=== PATIENT | male | born 1955 | race Caucasian/White ===

== ENCOUNTER 2018-12-16 03:41 | Emergency (ER) | payer MEDICARE ==
[~2018-12-16] VITALS: Ht 167.6 cm; Wt 67.1 kg
--- OUTSIDE RECORDS SUMMARY | 2018-12-16 03:44 | XMS REPORT ---
[facility] Address Unknown Phone Unavailable Care Team Providers Care Nailer Hand Name Role Phone Unavailable Unavailable Payers Payer Name Policy Type Policy Number Effective Date Expiration Date Problems This patient has no known problems. Allergies, Adverse Reactions, Alerts Allergy Name Allergy Type Status Severity Reaction(s) Onset Date Inactive Date Treating Clinician Comments No Known Allergies DA Active U 2018-08-21 00:00:00 No Known Allergies DA Active U 2018-08-19 00:00:00 No Known Allergies DA Active U 2017-06-13 00:00:00 Medications This patient has no known medications. Results Test Description Test Time Test Comments Text Results Atomic Results Result Comments GLUBED 2018-08-24 08:17:00 GLUBED (test code=GLUBED) 235 mg/dL 74-106 Performed by certified news camera operator at [facility] [id number] 07:51:00* Test Item Value Reference Range Comments GLUBED (test code=GLUBED) 289 mg/dL 74-106 Performed by certified news camera operator at [facility] [id number] 15:31:00* Test Item Value Reference Range Comments GLUBED (test code=GLUBED) 223 mg/dL 74-106 Performed by certified news camera operator at [facility] [id number] 11:34:00* Test Item Value Reference Range Comments GLUBED (test code=GLUBED) 223 mg/dL 74-106 Performed by certified news camera operator at [facility] COMPREHENSIVE METABOLIC [id number] 08:51:00* Test Item Value Reference Range Comments SODIUM (test code=NA) 138 mmol/L 136-145 POTASSIUM (test code=K) 4.4 mmol/L 3.5-5.1 CHLORIDE (test code=CL) 105.0 mmol/L 98-107 CARBON DIOXIDE (test code=CO2) 21.0 mmol/L 21-32 ANION GAP (test code=GAP) 16.4 10-20 GLUCOSE (test code=GLU) 493 mg/dL 74-106 BLOOD UREA NITROGEN (test code=BUN) 9 mg/dL 7-18 GLOMERULAR FILTRATION RATE (test code=GFR) > 60 mL/min >=60 Estimated GFR by using Modified MDRD formula.Chronic kidney disease is defined as either kidney damageor GFR <60 mL/min/1.73 m2 for >3 months. CREATININE (test code=CREAT) 0.80 mg/dL 0.7-1.3 BUN/CREATININE RATIO (test code=BUN/CREA) 11.3 10-20 TOTAL PROTEIN (test code=PROT) 5.9 gram/dL 6.4-8.2 ALBUMIN (test code=ALB) 3.1 g/dL 3.4-5.0 GLOBULIN (test code=GLOB) 2.8 gram/dL 2.7-4.2 ALBUMIN/GLOBULIN RATIO (test code=A/G) 1.1 0.75-1.50 CALCIUM (test code=CA) 8.0 mg/dL 8.5-10.1 BILIRUBIN TOTAL (test code=BILT) 0.40 mg/dL 0.0-1.0 SGOT/AST (test code=AST) 17 IUnit/L 15-37 SGPT/ALT (test code=ALT) 21 IUnit/L 12-78 ALKALINE PHOSPHATASE TOTAL (test code=ALKP) 84 IUnit/L 45-117 Note change in reference range due to change in reagent. COMPREHENSIVE METABOLIC [id number] 08:40:00* Test Item Value Reference Range Comments SODIUM (test code=NA) 138 mmol/L 136-145 POTASSIUM (test code=K) 4.4 mmol/L 3.5-5.1 CHLORIDE (test code=CL) 105.0 mmol/L 98-107 CARBON DIOXIDE (test code=CO2) mmol/L 21-32 ANION GAP (test code=GAP) 10-20 GLUCOSE (test code=GLU) mg/dL 74-106 BLOOD UREA NITROGEN (test code=BUN) mg/dL 7-18 GLOMERULAR FILTRATION RATE (test code=GFR) mL/min >=60 CREATININE (test code=CREAT) mg/dL 0.7-1.3 BUN/CREATININE RATIO (test code=BUN/CREA) 10-20 TOTAL PROTEIN (test code=PROT) gram/dL 6.4-8.2 ALBUMIN (test code=ALB) g/dL 3.4-5.0 GLOBULIN (test code=GLOB) gram/dL 2.7-4.2 ALBUMIN/GLOBULIN RATIO (test code=A/G) 0.75-1.50 CALCIUM (test code=CA) mg/dL 8.5-10.1 BILIRUBIN TOTAL (test code=BILT) mg/dL 0.0-1.0 SGOT/AST (test code=AST) IUnit/L 15-37 SGPT/ALT (test code=ALT) IUnit/L 12-78 ALKALINE PHOSPHATASE TOTAL (test code=ALKP) IUnit/L 45-117 [id number] 07:41:00* Test Item Value Reference Range Comments GLUBED (test code=GLUBED) 323 mg/dL 74-106 Performed by certified news camera operator at [facility] CBC W/AUTO [id number] 07:07:00* Test Item Value Reference Range Comments WHITE BLOOD CELL (test code=WBC) 7.3 K/mm3 4.5-12.5 RED BLOOD CELL (test code=RBC) 2.98 mill/mm3 4.0-5.8 HEMOGLOBIN (test code=HGB) 9.0 gram/dL 13.0-17.5 RESULT VERIFIED BY REPEAT ANALYSIS HEMATOCRIT (test code=HCT) 29.6 % 42.0-52.0 MEAN CELL VOLUME (test code=MCV) 99.3 fL 80-98 MEAN CELL HGB (test code=MCH) 30.2 picogram 27.0-33.0 MEAN CELL HGB CONCETRATION (test code=MCHC) 30.4 gram/dL 33.0-36.0 RED CELL DISTRIBUTION WIDTH (test code=RDW) 13.2 % 11.6-16.2 RED CELL DISTRIBUTION WIDTH SD (test code=RDW-SD) 47.9 fL 37.0-51.0 PLATELET COUNT (test code=PLT) 218 K/mm3 150-450 RESULT VERIFIED BY REPEAT ANALYSIS MEAN PLATELET VOLUME (test code=MPV) 10.4 fL 6.7-11.0 NEUTROPHIL % (test code=NT%) 71.9 % 39.0-69.0 IMMATURE GRANULOCYTE % (test code=IG%) 0.3 % 0.0-5.0 LYMPHOCYTE % (test code=LY%) 16.7 % 25.0-55.0 MONOCYTE % (test code=MO%) 6.9 % 0.0-10.0 EOSINOPHIL % (test code=EO%) 3.2 % 0.0-5.0 BASOPHIL % (test code=BA%) 1.0 % 0.0-1.0 NUCLEATED RBC % (test code=NRBC%) 0.0 % 0-0 NEUTROPHIL # (test code=NT#) 5.23 K/mm3 1.8-7.7 IMMATURE GRANULOCYTE # (test code=IG#) 0.02 x10 3/uL 0-0.03 LYMPHOCYTE # (test code=LY#) 1.21 K/mm3 1.0-5.0 MONOCYTE # (test code=MO#) 0.50 K/mm3 0-0.8 EOSINOPHIL # (test code=EO#) 0.23 K/mm3 0.0-0.5 BASOPHIL # (test code=BA#) 0.07 K/mm3 0.0-0.2 NUCLEATED RBC # (test code=NRBC#) 0.00 K/mm3 0.0-0.1 MANUAL DIFF REQUIRED (test code=MDIFF) NO [id number] 20:40:00* Test Item Value Reference Range Comments GLUBED (test code=GLUBED) 299 mg/dL 74-106 Performed by certified news camera operator at [facility] [id number] 16:04:00* Test Item Value Reference Range Comments GLUBED (test code=GLUBED) 234 mg/dL 74-106 Performed by certified news camera operator at [facility] [id number] 11:29:00* Test Item Value Reference Range Comments GLUBED (test code=GLUBED) 383 mg/dL 74-106 Performed by certified news camera operator at [facility] [id number] 09:52:00* Test Item Value Reference Range Comments TROPONIN-I (test code=TROPI) 0.135 ng/mL 0-0.045 Results called to PREVIOUS [facility] V.LAB.DRP 08/22/18 0951 COMMENTS TO AGRONOMY ADVISOR: COLLECT 3 HOURS AFTER PREVIOUS [id number] 07:49:00* Test Item Value Reference Range Comments GLUBED (test code=GLUBED) 237 mg/dL 74-106 Performed by certified news camera operator at [facility] [id number] 06:39:00* Test Item Value Reference Range Comments GLUBED (test code=GLUBED) 335 mg/dL 74-106 Performed by certified news camera operator at [facility] [id number] 04:15:00* Test Item Value Reference Range Comments GLUBED (test code=GLUBED) 431 mg/dL 74-106 Performed by certified news camera operator at [facility] [id number] 04:15:00* Test Item Value Reference Range Comments GLUBED (test code=GLUBED) 250 mg/dL 74-106 Performed by certified news camera operator at [facility] [id number] 03:43:00* Test Item Value Reference Range Comments TROPONIN-I (test code=TROPI) 0.136 ng/mL 0-0.045 PREVIOUSLY CALLED COMMENTS TO AGRONOMY ADVISOR: COLLECT 3 HOURS AFTER PREVIOUS SAMPLE- CT ABD PELVIS W/[id number] 18:20:00 Name: JUNG REARDON [facility] : 1955 Age/S: 63 / M [address] [facility] Unit #: [id number] Loc: [facility] [place] [address] Phys: Barbara Hinton DO Acct: [id number] Dis Date: Status: REG ER PHONE #: [phone] Exam Date: 08/21/2018 1755 FAX #: [phone] Reason: syncope, dizziness EXAMS: CPT CODE: [id number] CT ABD PELVIS W/CONT 14797 REASON FOR EXAM: syncope, dizziness EXAM ORDER DATE: 08/21/2018 5:28 PM Ordering MMahesh: Barbara Hinton DO PROCEDURE: - CT ABD PELVIS W/CONT COMPARISON: FINDINGS: CT images of the abdomen and pelvis were obtained with IV and without oral contrast at 5mm. Dose modulation, iterative reconstruction, and/or weight based adjustment of the MA/KV was utilized to reduce the radiation dose to as low as reasonably achievable. Intravenous contrast: 100cc of Omnipaque 370. The liver, spleen, pancreas are grossly within normal limits. The gallbladder is unremarkable by CT. The kidneys are within normal limits. The urinary bladder is unremarkable. The colon, small bowel, and stomach are within normal limits without evidence of obst ruction. The appendix is unremarkable. No evidence of free air or free fluid. IMPRESSION: No acute findings in the abdomen at 1820 Reported and signed by: Damien El M.D. CC: Barbara Hinton DO; Anupam Davila Technologist:RT ALBA(R) CT CTDI: DLP: Trnscb Date/Time: 08/21/2018 (1819) t.SDR.VTL Orig Print D/T: S: 08/21/2018 (1822) CTDI: DLP: PAGE 1 Signed Report - CT CHEST W/[id number] 18:18:00 Name: JUNG REARDON [facility] : 1955 Age/S: 63 / M [address] [facility] Unit #: [id number] Loc: [place] [address] Phys: Barbara Hinton DO Acct: [id number] Dis Date: Status: REG ER PHONE #: [phone] Exam Date: 08/21/2018 1759 FAX #: [phone] Reason: syncope, dizziness EXAMS: CPT CODE: [id number] CT CHEST W/CONTRAST 84770 REASON FOR EXAM: syncope, dizziness EXAM ORDER DATE: 08/21/2018 5:28 PM Ordering Virginie: Barbara Hinton DO PROCEDURE: - CT CHEST W/CONTRAST FINDINGS: CT images of the chest were obtained with IV contrast. Reconstructed sagittal and coronal images of the chest were provided for interpretation. Dose modulation, iterative reconstruction, and/or weight based adjustment of the MA/KV was utilized to reduce the radiation dose to as low as reasonably achievable. Intravenous contrast: 100cc of Omnipaque 370. The heart size is within normal limits. No evidence of pericardial effusion The thoracic aorta is unremarkable. No evidence of dissection or aneurysmal dilatation. No filling defect seen within the main or lobar pulmonary arteries to suggest pulmonary embolus. No evidence of mediastinal or hilar adenopathy. The lungs are clear. No evidence of pleural effusion IMPRESSION: No acute findings in the chest. at 1818 Reported and signed by: Damien El M.D. CC: Barbara Hinton DO; Anupam Davila Technologist:YADIRA SOLIS, RT(R) CT CTDI: DLP: Trnscb Date/Time: 08/21/2018 (1817) Matilde Orig Print D/T: S: 08/21/2018 (1820) CTDI: DLP: PAGE 1 Signed Report BASIC METABOLIC [id number] 17:37:00* Test Item Value Reference Range Comments SODIUM (test code=NA) 135 mmol/L 136-145 POTASSIUM (test code=K) 3.9 mmol/L 3.5-5.1 CHLORIDE (test code=CL) 101.0 mmol/L 98-107 CARBON DIOXIDE (test code=CO2) 26.0 mmol/L 21-32 ANION GAP (test code=GAP) 11.9 10-20 GLUCOSE (test code=GLU) 231 mg/dL 74-106 BLOOD UREA NITROGEN (test code=BUN) 14 mg/dL 7-18 GLOMERULAR FILTRATION RATE (test code=GFR) > 60 mL/min >=60 Estimated GFR by using Modified MDRD formula.Chronic kidney disease is defined as either kidney damageor GFR <60 mL/min/1.73 m2 for >3 months. CREATININE (test code=CREAT) 1.20 mg/dL 0.7-1.3 BUN/CREATININE RATIO (test code=BUN/CREA) 11.7 10-20 CALCIUM (test code=CA) 9.3 mg/dL 8.5-10.1 [id number] 17:37:00* Test Item Value Reference Range Comments TROPONIN-I (test code=TROPI) 0.097 ng/mL 0-0.045 Results called to [id number] by ANTONINO 08/21/18 1737Critical results verified and read back by Nurse? Y CBC W/O [id number] 17:33:00* Test Item Value Reference Range Comments WHITE BLOOD CELL (test code=WBC) 6.2 K/mm3 4.5-12.5 RED BLOOD CELL (test code=RBC) 4.00 mill/mm3 4.0-5.8 HEMOGLOBIN (test code=HGB) 12.1 gram/dL 13.0-17.5 HEMATOCRIT (test code=HCT) 39.1 % 42.0-52.0 MEAN CELL VOLUME (test code=MCV) 97.8 fL 80-98 MEAN CELL HGB (test code=MCH) 30.3 picogram 27.0-33.0 MEAN CELL HGB CONCETRATION (test code=MCHC) 30.9 gram/dL 33.0-36.0 RED CELL DISTRIBUTION WIDTH (test code=RDW) 13.1 % 11.6-16.2 PLATELET COUNT (test code=PLT) 281 K/mm3 150-450 MEAN PLATELET VOLUME (test code=MPV) 10.1 fL 6.7-11.0 B-TYPE NATRIURETIC [id number] 17:32:00* Test Item Value Reference Range Comments B-TYPE NATRIURETIC PEPTIDE (test code=BNP) 40.26 pgram/mL 0-100 PROTHROMBIN [id number] 17:31:00* Test Item Value Reference Range Comments PROTHROMBIN TIME PATIENT (test code=PTP) 10.6 seconds 9.0-14.0 INTERNATIONAL NORMAL RATIO (test code=INR) 0.9 0.8-1.2 The therapeutic range for oral anticoagulant therapy formost indications is an international normalized ratio (INR)of between 2.0 and 3.0. The recommended therapeutic INRrange for various clinical situations is listed below: Clinical Situation INR range Pulmonary e mbolism treatment (2.0-3.0)Venous thrombosis treatmentVenous thrombosis prophylaxis (high risk surgery)Prevention of systemic embolism from: Acute myocardial infarction Valvular heart disease Atrial fibrillation Mechanical prosthetic heart valves (2.5-3.5) IS PATIENT ON ANTICOAGULANTS? NTHROMBOPLASTIN TIME [id number] 17:31:00* Test Item Value Reference Range Comments THROMBOPLASTIN TIME PARTIAL (test code=PTT) 29.8 seconds 25.0-36.5 IS PATIENT ON ANTICOAGULANTS? NBASIC METABOLIC [id number] 17:25:00* Test Item Value Reference Range Comments SODIUM (test code=NA) 135 mmol/L 136-145 POTASSIUM (test code=K) 3.9 mmol/L 3.5-5.1 CHLORIDE (test code=CL) 101.0 mmol/L 98-107 CARBON DIOXIDE (test code=CO2) mmol/L 21-32 ANION GAP (test code=GAP) 10-20 GLUCOSE (test code=GLU) mg/dL 74-106 BLOOD UREA NITROGEN (test code=BUN) mg/dL 7-18 GLOMERULAR FILTRATION RATE (test code=GFR) mL/min >=60 CREATININE (test code=CREAT) mg/dL 0.7-1.3 BUN/CREATININE RATIO (test code=BUN/CREA) 10-20 CALCIUM (test code=CA) mg/dL 8.5-10.1 [id number] 17:25:00* Test Item Value Reference Range Comments TROPONIN-I (test code=TROPI) ng/mL 0-0.045 - XR SHOULDER 2 + V [id number] 17:06:00 FAX: Barbara Hinton DO [place]: B St: REG FAX: Anupam Pena MD [phone] Name: JUNG REARDON [facility] : 1955 Age/S: 63/M [address] Unit #: [id number] Loc: [facility] [address] Phys: JamaalBarbara DO Acct: [id number] Dis Date: Status: REG ER PHONE #: [phone] Exam Date: 08/21/2018 1700 FAX #: [phone] Reason: shoulder pain EXAMS: CPT CODE: [id number] XR SHOULDER 2 + [place] RT [address] REASON FOR EXAM: shoulder pain EXAM ORDER DATE: 08/21/2018 4:57 PM Ordering Virginie: Barbara Hinton DO PROCEDURE: - XR SHOULDER 2 + V RT FINDINGS: 3 views of the right shoulder were obtained. The joint spaces are maintained. The acromial clavicular joint is intact IMPRESSION: Comminuted right humeral neck fracture. The distal fragment is slightly displaced laterally less than 1 cm at 1706 Reported and signed by: Damien El M.D. CC: Barbara Hinton DO; Anupam Davila Technologist: SHARA ALDANA RT(R) Trnscrd Date/Time/By: 08/21/2018 (5482) : By: ChichiVTL Orig Print D/T: S: 08/21/2018 (3335) PAGE 1 Signed Report - XR CHEST 1 [id number] 17:04:00 FAX: Barbara Hinton DO [place]: B St: REG FAX: Anupam Pena MD [phone] Name: JUNG REARDON [facility] : 1955 Age/S: 63/M [address] Unit #: [id number] [place] [address] Phys: Barbara Hinton DO Acct: [id number] Dis Date: Status: REG ER PHONE #: [phone] Exam Date: 08/21/2018 1700 FAX #: [phone] Reason: syncope EXAMS: CPT CODE: [id number] XR CHEST 1 V [id number] REASON FOR EXAM: syncope EXAM ORDER DATE: 08/21/2018 4:43 PM Ordering Virginie: Barbara Hinton DO PROCEDURE: - XR CHEST 1 V COMPARISON: 08/19/2018 WENDY DINGS: Portable AP frontal view of the chest obtained at 4:56 PM shows cl ear lungs without evidence of consolidation. There is no evidence of effus ion. The heart size is within normal limits. Pulmonary vasculatures are un remarkable. IMPRESSION: No active disease. Electron ically Signed by Virginie El on 08/21/2018 at 1701 Repo rted and signed by: Damien El M.D. CC: Barbara Hinton DO; Anupam Davila Technologist: SHARA ALDANA RT(R) Trnscrd Date/Time/By: 08/21/2018 (1155) : By: ChichiVTL Orig Print D/T: S: 08/21/2018 (1704) PAGE 1 Signed Report [id number] 16:52:00* Test Item Value Reference Range Comments GLUBED (test code=GLUBED) 209 mg/dL 74-106 Performed by certified news camera operator at [facility] [id number] 16:09:00* Test Item Value Reference Range Comments GLUBED (test code=GLUBED) 210 mg/dL 74-106 Performed by certified news camera operator at [facility] [id number] 14:42:00* Test Item Value Reference Range Comments GLUBED (test code=GLUBED) 223 mg/dL 74-106 Performed by certified news camera operator at [facility] [id number] 14:42:00* Test Item Value Reference Range Comments GLUBED (test code=GLUBED) 223 mg/dL 74-106 Performed by certified news camera operator at [facility] [id number] 11:58:00* Test Item Value Reference Range Comments GLUBED (test code=GLUBED) 281 mg/dL 74-106 Performed by certified news camera operator at [facility] COMPREHENSIVE METABOLIC [id number] 08:00:00* Test Item Value Reference Range Comments SODIUM (test code=NA) 137 mmol/L 136-145 POTASSIUM (test code=K) 4.3 mmol/L 3.5-5.1 CHLORIDE (test code=CL) 102.0 mmol/L 98-107 CARBON DIOXIDE (test code=CO2) 28.0 mmol/L 21-32 ANION GAP (test code=GAP) 11.3 10-20 GLUCOSE (test code=GLU) 145 mg/dL 74-106 BLOOD UREA NITROGEN (test code=BUN) 13 mg/dL 7-18 GLOMERULAR FILTRATION RATE (test code=GFR) > 60 mL/min >=60 Estimated GFR by using Modified MDRD formula.Chronic kidney disease is defined as either kidney damageor GFR <60 mL/min/1.73 m2 for >3 months. CREATININE (test code=CREAT) 0.70 mg/dL 0.7-1.3 BUN/CREATININE RATIO (test code=BUN/CREA) 18.6 10-20 TOTAL PROTEIN (test code=PROT) 8.0 gram/dL 6.4-8.2 ALBUMIN (test code=ALB) 3.9 g/dL 3.4-5.0 GLOBULIN (test code=GLOB) 4.1 gram/dL 2.7-4.2 ALBUMIN/GLOBULIN RATIO (test code=A/G) 1.0 0.75-1.50 CALCIUM (test code=CA) 9.2 mg/dL 8.5-10.1 BILIRUBIN TOTAL (test code=BILT) 0.40 mg/dL 0.0-1.0 SGOT/AST (test code=AST) 36 IUnit/L 15-37 SGPT/ALT (test code=ALT) 34 IUnit/L 12-78 ALKALINE PHOSPHATASE TOTAL (test code=ALKP) 112 IUnit/L 45-117 Note change in reference range due to change in reagent. CBC W/AUTO [id number] 07:10:00* Test Item Value Reference Range Comments WHITE BLOOD CELL (test code=WBC) 6.9 K/mm3 4.5-12.5 RED BLOOD CELL (test code=RBC) 4.04 mill/mm3 4.0-5.8 HEMOGLOBIN (test code=HGB) 12.5 gram/dL 13.0-17.5 HEMATOCRIT (test code=HCT) 38.7 % 42.0-52.0 MEAN CELL VOLUME (test code=MCV) 95.8 fL 80-98 MEAN CELL HGB (test code=MCH) 30.9 picogram 27.0-33.0 MEAN CELL HGB CONCETRATION (test code=MCHC) 32.3 gram/dL 33.0-36.0 RED CELL DISTRIBUTION WIDTH (test code=RDW) 13.2 % 11.6-16.2 RED CELL DISTRIBUTION WIDTH SD (test code=RDW-SD) 46.7 fL 37.0-51.0 PLATELET COUNT (test code=PLT) 287 K/mm3 150-450 MEAN PLATELET VOLUME (test code=MPV) 9.9 fL 6.7-11.0 NEUTROPHIL % (test code=NT%) 64.1 % 39.0-69.0 IMMATURE GRANULOCYTE % (test code=IG%) 0.3 % 0.0-5.0 LYMPHOCYTE % (test code=LY%) 22.7 % 25.0-55.0 MONOCYTE % (test code=MO%) 6.5 % 0.0-10.0 EOSINOPHIL % (test code=EO%) 5.1 % 0.0-5.0 BASOPHIL % (test code=BA%) 1.3 % 0.0-1.0 NUCLEATED RBC % (test code=NRBC%) 0.0 % 0-0 NEUTROPHIL # (test code=NT#) 4.45 K/mm3 1.8-7.7 IMMATURE GRANULOCYTE # (test code=IG#) 0.02 x10 3/uL 0-0.03 LYMPHOCYTE # (test code=LY#) 1.57 K/mm3 1.0-5.0 MONOCYTE # (test code=MO#) 0.45 K/mm3 0-0.8 EOSINOPHIL # (test code=EO#) 0.35 K/mm3 0.0-0.5 BASOPHIL # (test code=BA#) 0.09 K/mm3 0.0-0.2 NUCLEATED RBC # (test code=NRBC#) 0.00 K/mm3 0.0-0.1 MANUAL DIFF REQUIRED (test code=MDIFF) NO [id number] 20:19:00* Test Item Value Reference Range Comments GLUBED (test code=GLUBED) 217 mg/dL 74-106 Performed by certified news camera operator at [facility] [id number] 16:05:00* Test Item Value Reference Range Comments GLUBED (test code=GLUBED) 262 mg/dL 74-106 Performed by certified news camera operator at [facility] [id number] 11:22:00* Test Item Value Reference Range Comments GLUBED (test code=GLUBED) 278 mg/dL 74-106 Performed by certified news camera operator at [facility] [id number] 09:58:00* Test Item Value Reference Range Comments TROPONIN-I (test code=TROPI) 0.106 ng/mL 0-0.045 COMMENTS TO AGRONOMY ADVISOR: COLLECT 3 HOURS AFTER PREVIOUS [id number] 08:08:00* Test Item Value Reference Range Comments GLUBED (test code=GLUBED) 110 mg/dL 74-106 Performed by certified news camera operator at [facility] [id number] 07:38:00* Test Item Value Reference Range Comments GLUBED (test code=GLUBED) 46 mg/dL 74-106 [facility] Protocol~ [id number] 07:38:00* Test Item Value Reference Range Comments GLUBED (test code=GLUBED) 21 mg/dL 74-106 Test performed as P.O.C. by nursing staff.[facility] by certified news [facility] Protocol~ [id number] 04:06:00* Test Item Value Reference Range Comments TROPONIN-I (test code=TROPI) 0.091 ng/mL 0-0.045 COMMENTS TO AGRONOMY ADVISOR: COLLECT 3 HOURS AFTER PREVIOUS SAMPLEB-TYPE NATRIURETIC [id number] 22:38:00* Test Item Value Reference Range Comments B-TYPE NATRIURETIC PEPTIDE (test code=BNP) 29.85 pgram/mL 0-100 BASIC METABOLIC [id number] 22:11:00* Test Item Value Reference Range Comments SODIUM (test code=NA) 127 mmol/L 136-145 POTASSIUM (test code=K) 4.7 mmol/L 3.5-5.1 CHLORIDE (test code=CL) 93.0 mmol/L 98-107 CARBON DIOXIDE (test code=CO2) 20.0 mmol/L 21-32 ANION GAP (test code=GAP) 18.7 10-20 GLUCOSE (test code=GLU) 252 mg/dL 74-106 BLOOD UREA NITROGEN (test code=BUN) 12 mg/dL 7-18 GLOMERULAR FILTRATION RATE (test code=GFR) > 60 mL/min >=60 Estimated GFR by using Modified MDRD formula.Chronic kidney disease is defined as either kidney damageor GFR <60 mL/min/1.73 m2 for >3 months. CREATININE (test code=CREAT) 0.90 mg/dL 0.7-1.3 BUN/CREATININE RATIO (test code=BUN/CREA) 13.3 10-20 CALCIUM (test code=CA) 8.7 mg/dL 8.5-10.1 HEPATIC FUNCTION [id number] 22:11:00* Test Item Value Reference Range Comments TOTAL PROTEIN (test code=PROT) 7.9 gram/dL 6.4-8.2 ALBUMIN (test code=ALB) 3.9 g/dL 3.4-5.0 GLOBULIN (test code=GLOB) 4.0 gram/dL 2.7-4.2 ALBUMIN/GLOBULIN RATIO (test code=A/G) 1.0 0.75-1.50 BILIRUBIN TOTAL (test code=BILT) 0.40 mg/dL 0.0-1.0 BILIRUBIN DIRECT (test code=BILD) 0.13 mg/dL 0.0-0.20 SGOT/AST (test code=AST) 42 IUnit/L 15-37 SGPT/ALT (test code=ALT) 34 IUnit/L 12-78 ALKALINE PHOSPHATASE TOTAL (test code=ALKP) 111 IUnit/L 45-117 Note change in reference range due to change in reagent. [id number] 22:11:00* Test Item Value Reference Range Comments LIPASE (test code=LIP) 77 U/L 73.0-393.0 [id number] 22:11:00* Test Item Value Reference Range Comments MAGNESIUM (test code=MAG) 2.1 mg/dL 1.8-2.4 [id number] 22:11:00* Test Item Value Reference Range Comments TROPONIN-I (test code=TROPI) 0.093 ng/mL 0-0.045 Results called to [id number] by ANTONINO 08/19/18 [id number] results verified and read back by Nurse? Y BASIC METABOLIC [id number] 21:49:00* Test Item Value Reference Range Comments SODIUM (test code=NA) 127 mmol/L 136-145 POTASSIUM (test code=K) 4.7 mmol/L 3.5-5.1 CHLORIDE (test code=CL) 93.0 mmol/L 98-107 CARBON DIOXIDE (test code=CO2) mmol/L 21-32 ANION GAP (test code=GAP) 10-20 GLUCOSE (test code=GLU) mg/dL 74-106 BLOOD UREA NITROGEN (test code=BUN) mg/dL 7-18 GLOMERULAR FILTRATION RATE (test code=GFR) mL/min >=60 CREATININE (test code=CREAT) mg/dL 0.7-1.3 BUN/CREATININE RATIO (test code=BUN/CREA) 10-20 CALCIUM (test code=CA) mg/dL 8.5-10.1 HEPATIC FUNCTION [id number] 21:49:00* Test Item Value Reference Range Comments TOTAL PROTEIN (test code=PROT) gram/dL 6.4-8.2 ALBUMIN (test code=ALB) g/dL 3.4-5.0 GLOBULIN (test code=GLOB) gram/dL 2.7-4.2 ALBUMIN/GLOBULIN RATIO (test code=A/G) 0.75-1.50 BILIRUBIN TOTAL (test code=BILT) mg/dL 0.0-1.0 BILIRUBIN DIRECT (test code=BILD) mg/dL 0.0-0.20 SGOT/AST (test code=AST) IUnit/L 15-37 SGPT/ALT (test code=ALT) IUnit/L 12-78 ALKALINE PHOSPHATASE TOTAL (test code=ALKP) IUnit/L 45-117 [id number] 21:49:00* Test Item Value Reference Range Comments LIPASE (test code=LIP) U/L 73.0-393.0 [id number] 21:49:00* Test Item Value Reference Range Comments MAGNESIUM (test code=MAG) mg/dL 1.8-2.4 [id number] 21:49:00* Test Item Value Reference Range Comments TROPONIN-I (test code=TROPI) ng/mL 0-0.045 TROPONIN I [id number] 21:47:00* Test Item Value Reference Range Comments TROPONIN I RAPID (test code=TROPIRAP) 0.00 ng/mL <0.08 Please Note New Reference Range 0.00-0.079 ng/mL - Negative>or=0.08 ng/mL - Positive The use of serial sampling and testing protocol is arecommended practice.An elevated troponin level alone is often not sufficient fordiagnosis of myocardial infarction. Troponin results obtained by different assays may vary.Evaluation of the extent of myocardial damage based onincrease of troponin would be valid only if similarmethodology is used. PROTHROMBIN [id number] 21:47:00* Test Item Value Reference Range Comments PROTHROMBIN TIME PATIENT (test code=PTP) 10.4 seconds 9.0-14.0 INTERNATIONAL NORMAL RATIO (test code=INR) 0.9 0.8-1.2 The therapeutic range for oral anticoagulant therapy formost indications is an international normalized ratio (INR)of between 2.0 and 3.0. The recommended therapeutic INRrange for various clinical situations is listed below: Clinical Situation INR range Pulmonary e mbolism treatment (2.0-3.0)Venous thrombosis treatmentVenous thrombosis prophylaxis (high risk surgery)Prevention of systemic embolism from: Acute myocardial infarction Valvular heart disease Atrial fibrillation Mechanical prosthetic heart valves (2.5-3.5) IS PATIENT ON ANTICOAGULANTS? NTHROMBOPLASTIN TIME [id number] 21:47:00* Test Item Value Reference Range Comments THROMBOPLASTIN TIME PARTIAL (test code=PTT) 32.7 seconds 25.0-36.5 IS PATIENT ON ANTICOAGULANTS? NCBC W/O [id number] 21:40:00* Test Item Value Reference Range Comments WHITE BLOOD CELL (test code=WBC) 6.2 K/mm3 4.5-12.5 RED BLOOD CELL (test code=RBC) 3.68 mill/mm3 4.0-5.8 HEMOGLOBIN (test code=HGB) 11.3 gram/dL 13.0-17.5 HEMATOCRIT (test code=HCT) 35.3 % 42.0-52.0 MEAN CELL VOLUME (test code=MCV) 95.9 fL 80-98 MEAN CELL HGB (test code=MCH) 30.7 picogram 27.0-33.0 MEAN CELL HGB CONCETRATION (test code=MCHC) 32.0 gram/dL 33.0-36.0 RED CELL DISTRIBUTION WIDTH (test code=RDW) 13.0 % 11.6-16.2 PLATELET COUNT (test code=PLT) 246 K/mm3 150-450 MEAN PLATELET VOLUME (test code=MPV) 10.0 fL 6.7-11.0 - XR CHEST 1 [id number] 21:30:00 FAX: Hetal Jean MD [phone] [place]: St: [facility] FAX: Anupam Pena MD [phone] Name: JUNG REARDON [facility] : 1955 Age/S: 63/M [address] [facility] Unit #: [id number] Loc: [place] [address] Phys: Hetal Jean MD Acct: [id number] Dis Date: Status: REG ER PHONE #: [phone] Exam Date: 08/19/20182125 FAX #: [phone] Reason: CHEST PAIN EXAMS: CPT CODE: [id number] XR CHEST 1 V 24772 HISTORY: Chest pain. COMPARISON: July 14, 2018. No acute infiltrates, effusion or congestion is noted. Mild scarring. No pneumothorax. The cardiac and mediastinal silhouette are within normal limits. IMPRESSION: No acute infiltrates, effusion or congestion. at 2129 Reported and signed by: [place] M.D. CC: Hetal Jean MD; Anupam Davila Technologist: Keyla Jacobs Trnscrd Date/Time/By: 08/19/2018 (2129) : By: [email or web address] Orig Print D/T: S: 08/19/2018 (2132) PAGE 1 Signed Report [id number] 16:08:00* Test Item Value Reference Range Comments GLUBED (test code=GLUBED) 322 mg/dL 74-106 Performed by certified news camera operator at [facility] [id number] 16:08:00* Test Item Value Reference Range Comments GLUBED (test code=GLUBED) 108 mg/dL 74-106 Performed by certified news camera operator at [facility] [id number] 16:08:00* Test Item Value Reference Range Comments GLUBED (test code=GLUBED) 331 mg/dL 74-106 Performed by certified news camera operator at [facility] [id number] 16:08:00* Test Item Value Reference Range Comments GLUBED (test code=GLUBED) 326 mg/dL 74-106 Performed by certified news camera operator at [facility] [id number] 07:18:00* Test Item Value Reference Range Comments GLYCOSYLATED HEMOGLOBIN (HA1C) (test code=GLYHGB) 7.3 % HbA1 4.8-6.0 ESTIMATED AVERAGE GLUCOSE (test code=EAG) 163 MG/DL COMPREHENSIVE METABOLIC [id number] 06:02:00* Test Item Value Reference Range Comments SODIUM (test code=NA) 137 mmol/L 136-145 POTASSIUM (test code=K) 4.0 mmol/L 3.5-5.1 CHLORIDE (test code=CL) 105.0 mmol/L 98-107 CARBON DIOXIDE (test code=CO2) 26.0 mmol/L 21-32 ANION GAP (test code=GAP) 10.0 10-20 GLUCOSE (test code=GLU) 163 mg/dL 74-106 BLOOD UREA NITROGEN (test code=BUN) 19 mg/dL 7-18 GLOMERULAR FILTRATION RATE (test code=GFR) > 60 mL/min >=60 Estimated GFR by using Modified MDRD formula.Chronic kidney disease is defined as either kidney damageor GFR <60 mL/min/1.73 m2 for >3 months. CREATININE (test code=CREAT) 0.70 mg/dL 0.7-1.3 BUN/CREATININE RATIO (test code=BUN/CREA) 27.9 10-20 TOTAL PROTEIN (test code=PROT) 7.4 gram/dL 6.4-8.2 ALBUMIN (test code=ALB) 3.5 g/dL 3.4-5.0 GLOBULIN (test code=GLOB) 3.9 gram/dL 2.7-4.2 ALBUMIN/GLOBULIN RATIO (test code=A/G) 0.9 0.75-1.50 CALCIUM (test code=CA) 8.4 mg/dL 8.5-10.1 BILIRUBIN TOTAL (test code=BILT) 0.40 mg/dL 0.0-1.0 SGOT/AST (test code=AST) 39 IUnit/L 15-37 SGPT/ALT (test code=ALT) 55 IUnit/L 12-78 ALKALINE PHOSPHATASE TOTAL (test code=ALKP) 112 IUnit/L 45-117 Note change in reference range due to change in reagent. LIPID PROFILE (CORONARY RISK)2018-07-15 06:02:00* Test Item Value Reference Range Comments TRIGLYCERIDES (test code=TRIG) 86 mg/dL 20-150 CHOLESTEROL (test code=CHOL) 148 mg/dL 0-200 CHOLESTEROL/HDL RATIO (test code=CHOLHDL) 1.0 RATIO 0-4.9 RISK ASSOCIATED WITH CHOL/HDL RATIOS: Risk Male Female1/2 AVERAGE 3.43 3.27AVERAGE 4.97 4.442X AVERAGE 9.55 7.053X AVERAGE 23.39 11.04 REFERENCE VALUE IS RELATED TO RISK LEVELS ASRECOMMENDED BY THE SENDY. HEART, LUNG, AND BLOOD INST. HDL CHOLESTEROL (test code=HDL) 93 mg/dL 40-60 LIPOPROTEIN LDL (test code=LDL) 47 mg/dL 100-129 Reference Interval: mg/dL mmol/L Optimal <100 <2.6Near/above optimal 100-129 2.6- 3.3Borderline High 130-159 3.4-4.1High 160-189 4.1-4.9Very High >=190 >=4.9=========This LDL result is a direct measurement.========= COMPREHENSIVE METABOLIC [id number] 05:47:00* Test Item Value Reference Range Comments SODIUM (test code=NA) 137 mmol/L 136-145 POTASSIUM (test code=K) 4.0 mmol/L 3.5-5.1 CHLORIDE (test code=CL) 105.0 mmol/L 98-107 CARBON DIOXIDE (test code=CO2) mmol/L 21-32 ANION GAP (test code=GAP) 10-20 GLUCOSE (test code=GLU) mg/dL 74-106 BLOOD UREA NITROGEN (test code=BUN) mg/dL 7-18 GLOMERULAR FILTRATION RATE (test code=GFR) mL/min >=60 CREATININE (test code=CREAT) mg/dL 0.7-1.3 BUN/CREATININE RATIO (test code=BUN/CREA) 10-20 TOTAL PROTEIN (test code=PROT) gram/dL 6.4-8.2 ALBUMIN (test code=ALB) g/dL 3.4-5.0 GLOBULIN (test code=GLOB) gram/dL 2.7-4.2 ALBUMIN/GLOBULIN RATIO (test code=A/G) 0.75-1.50 CALCIUM (test code=CA) mg/dL 8.5-10.1 BILIRUBIN TOTAL (test code=BILT) mg/dL 0.0-1.0 SGOT/AST (test code=AST) IUnit/L 15-37 SGPT/ALT (test code=ALT) IUnit/L 12-78 ALKALINE PHOSPHATASE TOTAL (test code=ALKP) IUnit/L 45-117 LIPID PROFILE (CORONARY RISK)2018-07-15 05:47:00* Test Item Value Reference Range Comments TRIGLYCERIDES (test code=TRIG) mg/dL 20-150 CHOLESTEROL (test code=CHOL) mg/dL 0-200 CHOLESTEROL/HDL RATIO (test code=CHOLHDL) RATIO 0-4.9 HDL CHOLESTEROL (test code=HDL) mg/dL 40-60 LIPOPROTEIN LDL (test code=LDL) mg/dL 100-129 CBC W/AUTO [id number] 05:28:00* Test Item Value Reference Range Comments WHITE BLOOD CELL (test code=WBC) 13.0 K/mm3 4.5-12.5 RED BLOOD CELL (test code=RBC) 3.55 mill/mm3 4.0-5.8 HEMOGLOBIN (test code=HGB) 11.0 gram/dL 13.0-17.5 HEMATOCRIT (test code=HCT) 33.7 % 42.0-52.0 MEAN CELL VOLUME (test code=MCV) 94.9 fL 80-98 MEAN CELL HGB (test code=MCH) 31.0 picogram 27.0-33.0 MEAN CELL HGB CONCETRATION (test code=MCHC) 32.6 gram/dL 33.0-36.0 RED CELL DISTRIBUTION WIDTH (test code=RDW) 13.8 % 11.6-16.2 RED CELL DISTRIBUTION WIDTH SD (test code=RDW-SD) 48.6 fL 37.0-51.0 PLATELET COUNT (test code=PLT) 232 K/mm3 150-450 MEAN PLATELET VOLUME (test code=MPV) 10.3 fL 6.7-11.0 NEUTROPHIL % (test code=NT%) 85.6 % 39.0-69.0 IMMATURE GRANULOCYTE % (test code=IG%) 0.6 % 0.0-5.0 LYMPHOCYTE % (test code=LY%) 8.0 % 25.0-55.0 MONOCYTE % (test code=MO%) 5.5 % 0.0-10.0 EOSINOPHIL % (test code=EO%) 0.1 % 0.0-5.0 BASOPHIL % (test code=BA%) 0.2 % 0.0-1.0 NUCLEATED RBC % (test code=NRBC%) 0.0 % 0-0 NEUTROPHIL # (test code=NT#) 11.13 K/mm3 1.8-7.7 IMMATURE GRANULOCYTE # (test code=IG#) 0.08 x10 3/uL 0-0.03 LYMPHOCYTE # (test code=LY#) 1.04 K/mm3 1.0-5.0 MONOCYTE # (test code=MO#) 0.71 K/mm3 0-0.8 EOSINOPHIL # (test code=EO#) 0.01 K/mm3 0.0-0.5 BASOPHIL # (test code=BA#) 0.02 K/mm3 0.0-0.2 NUCLEATED RBC # (test code=NRBC#) 0.00 K/mm3 0.0-0.1 [id number] 01:18:00* Test Item Value Reference Range Comments GLUBED (test code=GLUBED) 202 mg/dL 74-106 Performed by certified news camera operator at [facility] [id number] 21:55:00* Test Item Value Reference Range Comments GLUBED (test code=GLUBED) 314 mg/dL 74-106 Performed by certified news camera operator at [facility] [id number] 17:05:00* Test Item Value Reference Range Comments GLUBED (test code=GLUBED) 271 mg/dL 74-106 Performed by certified news camera operator at [facility] [id number] 16:26:00* Test Item Value Reference Range Comments GLUBED (test code=GLUBED) 215 mg/dL 74-106 Performed by certified news camera operator at [facility] [id number] 15:09:00* Test Item Value Reference Range Comments TROPONIN-I (test code=TROPI) 0.100 ng/mL 0-0.045 RESULT VERIFIED BY REPEAT ANALYSIS COMMENTS TO AGRONOMY ADVISOR: COLLECT 3 HOURS AFTER PREVIOUS [id number] 09:19:00* Test Item Value Reference Range Comments TROPONIN-I (test code=TROPI) 0.114 ng/mL 0-0.045 COMMENTS TO AGRONOMY ADVISOR: COLLECT 3 HOURS AFTER PREVIOUS [id number] 08:14:00* Test Item Value Reference Range Comments GLUBED (test code=GLUBED) 270 mg/dL 74-106 Performed by certified news camera operator at [facility] [id number] 07:15:00* Test Item Value Reference Range Comments GLUBED (test code=GLUBED) 251 mg/dL 74-106 Performed by certified news camera operator at [facility] [id number] 06:45:00* Test Item Value Reference Range Comments GLYCOSYLATED HEMOGLOBIN (HA1C) (test code=GLYHGB) 7.1 % HbA1 4.8-6.0 ESTIMATED AVERAGE GLUCOSE (test code=EAG) 157 MG/DL URINALYSIS [id number] 06:18:00* Test Item Value Reference Range Comments UA COLOR (test code=COLU) LIGHT YELLOW YELLOW UA APPEARANCE (test code=APPU) CLEAR CLEAR UA GLUCOSE DIPSTICK (test code=DGLUU) >=500 mg/dL NEGATIVE UA BILIRUBIN DIPSTICK (test code=BILU) NEGATIVE mg/dL NEGATIVE UA KETONE DIPSTICK (test code=KETU) Negative mg/dL NEGATIVE UA SPECIFIC GRAVITY (test code=SGU) 1.009 1.001-1.035 UA BLOOD DIPSTICK (test code=SRINATH) Negative NEGATIVE UA PH DIPSTICK (test code=THERESA) 5.0 5.0-8.0 UA PROTEIN DIPSTICK (test code=PROU) Negative mg/dL NEGATIVE UA UROBILINIOGEN DIPSTICK (test code=URO) NEGATIVE mg/dL NEGATIVE UA NITRITE DIPSTICK (test code=TALITA) NEGATIVE NEGATIVE UA LEUKOCYTE ESTERASE W REFLEX (test code=LEUUR) NEGATIVE NEGATIVE UA WBC (test code=WBCU) 0-5 #/HPF 0-5 UA RBC (test code=RBCU) 0-3 #/HPF 0-5 UA EPITHELIAL CELLS (test code=EPIU) None seen per HPF FEW UA BACTERIA (test code=BACU) NONE SEEN #/HPF NONE Urine Source? Clean CatchDRUGS OF ABUSE SCREEN [id number] 06:18:00* Test Item Value Reference Range Comments URN COCAINE (test code=COCAURN) NEGATIVE <300 ng/mL URN CANNABINOIDS (test code=CANNABURN) NEGATIVE <50 ng/mL URN AMPHETAMINE (test code=AMPHETURN) NEGATIVE <1000 ng/mL URN BARBITURATE (test code=BARBITURN) NEGATIVE <200 ng/mL URN BENZODIAZEPINE (test code=BENZOURN) NEGATIVE <200 ng/mL URN OPIATES (test code=OPIATURN) NEGATIVE <300 ng/mL URN PHENCYCLIDINE (PCP) (test code=PHENCURN) NEGATIVE <25 ng/mL URN METHADONE (test code=METHAURN) NEGATIVE <300 ng/mL Urine Source? Clean CatchURINALYSIS [id number] 06:08:00* Test Item Value Reference Range Comments UA COLOR (test code=COLU) LIGHT YELLOW YELLOW UA APPEARANCE (test code=APPU) CLEAR CLEAR UA GLUCOSE DIPSTICK (test code=DGLUU) >=500 mg/dL NEGATIVE UA BILIRUBIN DIPSTICK (test code=BILU) NEGATIVE mg/dL NEGATIVE UA KETONE DIPSTICK (test code=KETU) Negative mg/dL NEGATIVE UA SPECIFIC GRAVITY (test code=SGU) 1.009 1.001-1.035 UA BLOOD DIPSTICK (test code=SRINATH) Negative NEGATIVE UA PH DIPSTICK (test code=THERESA) 5.0 5.0-8.0 UA PROTEIN DIPSTICK (test code=PROU) Negative mg/dL NEGATIVE UA UROBILINIOGEN DIPSTICK (test code=URO) NEGATIVE mg/dL NEGATIVE UA NITRITE DIPSTICK (test code=TALITA) NEGATIVE NEGATIVE UA LEUKOCYTE ESTERASE W REFLEX (test code=LEUUR) NEGATIVE NEGATIVE UA WBC (test code=WBCU) 0-5 #/HPF 0-5 UA RBC (test code=RBCU) 0-3 #/HPF 0-5 UA EPITHELIAL CELLS (test code=EPIU) None seen per HPF FEW UA BACTERIA (test code=BACU) NONE SEEN #/HPF NONE Urine Source? Clean CatchDRUGS OF ABUSE SCREEN [id number] 06:08:00* Test Item Value Reference Range Comments URN COCAINE (test code=COCAURN) <300 ng/mL URN CANNABINOIDS (test code=CANNABURN) <50 ng/mL URN AMPHETAMINE (test code=AMPHETURN) <1000 ng/mL URN BARBITURATE (test code=BARBITURN) <200 ng/mL URN BENZODIAZEPINE (test code=BENZOURN) <200 ng/mL URN OPIATES (test code=OPIATURN) <300 ng/mL URN PHENCYCLIDINE (PCP) (test code=PHENCURN) <25 ng/mL URN METHADONE (test code=METHAURN) <300 ng/mL Urine Source? Clean [id number] 05:48:00* Test Item Value Reference Range Comments GLUBED (test code=GLUBED) 175 mg/dL 74-106 Performed by certified news camera operator at [facility] B-TYPE NATRIURETIC [id number] 03:40:00* Test Item Value Reference Range Comments B-TYPE NATRIURETIC PEPTIDE (test code=BNP) 57.18 pgram/mL 0-100 BASIC METABOLIC [id number] 03:26:00* Test Item Value Reference Range Comments SODIUM (test code=NA) 129 mmol/L 136-145 POTASSIUM (test code=K) 3.4 mmol/L 3.5-5.1 CHLORIDE (test code=CL) 96.0 mmol/L 98-107 CARBON DIOXIDE (test code=CO2) 22.0 mmol/L 21-32 ANION GAP (test code=GAP) 14.4 10-20 GLUCOSE (test code=GLU) 229 mg/dL 74-106 BLOOD UREA NITROGEN (test code=BUN) 12 mg/dL 7-18 GLOMERULAR FILTRATION RATE (test code=GFR) > 60 mL/min >=60 Estimated GFR by using Modified MDRD formula.Chronic kidney disease is defined as either kidney damageor GFR <60 mL/min/1.73 m2 for >3 months. CREATININE (test code=CREAT) 1.00 mg/dL 0.7-1.3 BUN/CREATININE RATIO (test code=BUN/CREA) 11.4 10-20 CALCIUM (test code=CA) 7.6 mg/dL 8.5-10.1 HEPATIC FUNCTION [id number] 03:26:00* Test Item Value Reference Range Comments TOTAL PROTEIN (test code=PROT) 6.7 gram/dL 6.4-8.2 ALBUMIN (test code=ALB) 3.3 g/dL 3.4-5.0 GLOBULIN (test code=GLOB) 3.4 gram/dL 2.7-4.2 ALBUMIN/GLOBULIN RATIO (test code=A/G) 1.0 0.75-1.50 BILIRUBIN TOTAL (test code=BILT) 0.30 mg/dL 0.0-1.0 BILIRUBIN DIRECT (test code=BILD) 0.12 mg/dL 0.0-0.20 SGOT/AST (test code=AST) 66 IUnit/L 15-37 SGPT/ALT (test code=ALT) 66 IUnit/L 12-78 ALKALINE PHOSPHATASE TOTAL (test code=ALKP) 108 IUnit/L 45-117 Note change in reference range due to change in reagent. [id number] 03:26:00* Test Item Value Reference Range Comments LIPASE (test code=LIP) 79 U/L 73.0-393.0 [id number] 03:26:00* Test Item Value Reference Range Comments TROPONIN-I (test code=TROPI) 0.123 ng/mL 0-0.[address] CUTLER by V.LAB.RA1 07/14/18 0325Critical results verified and read back by Nurse? Y [id number] 03:08:00* Test Item Value Reference Range Comments MAGNESIUM (test code=MAG) 2.4 mg/dL 1.8-2.4 [id number] 03:08:00* Test Item Value Reference Range Comments ALCOHOL (test code=ALC) 131 mg/dL 0.0-3.0 INTERPRETIVE DATA NOTE: POSITIVE SCREENING RESULTS SHOULD BE CONSIDERED PRESUMPTIVE.WHEN COLLECTED FOR MEDICAL PURPOSES ONLY. SPECIMEN WILL NOTBE COLLECTED BY CHAIN OF CUSTODY.IF A CONFIRMATION OF POSITIVE RESULTS IS DESIRED, ACONFIRMATION TEST MUST BE REQUESTED BY THE PHYSICIAN AT ANADDITIONAL CHARGE TO THE PATIENT. BASIC METABOLIC [id number] 03:05:00* Test Item Value Reference Range Comments SODIUM (test code=NA) 129 mmol/L 136-145 POTASSIUM (test code=K) 3.4 mmol/L 3.5-5.1 CHLORIDE (test code=CL) 96.0 mmol/L 98-107 CARBON DIOXIDE (test code=CO2) 22.0 mmol/L 21-32 ANION GAP (test code=GAP) 14.4 10-20 GLUCOSE (test code=GLU) 229 mg/dL 74-106 BLOOD UREA NITROGEN (test code=BUN) 12 mg/dL 7-18 GLOMERULAR FILTRATION RATE (test code=GFR) > 60 mL/min >=60 Estimated GFR by using Modified MDRD formula.Chronic kidney disease is defined as either kidney damageor GFR <60 mL/min/1.73 m2 for >3 months. CREATININE (test code=CREAT) 1.00 mg/dL 0.7-1.3 BUN/CREATININE RATIO (test code=BUN/CREA) 11.4 10-20 CALCIUM (test code=CA) 7.6 mg/dL 8.5-10.1 HEPATIC FUNCTION [id number] 03:05:00* Test Item Value Reference Range Comments TOTAL PROTEIN (test code=PROT) 6.7 gram/dL 6.4-8.2 ALBUMIN (test code=ALB) 3.3 g/dL 3.4-5.0 GLOBULIN (test code=GLOB) 3.4 gram/dL 2.7-4.2 ALBUMIN/GLOBULIN RATIO (test code=A/G) 1.0 0.75-1.50 BILIRUBIN TOTAL (test code=BILT) 0.30 mg/dL 0.0-1.0 BILIRUBIN DIRECT (test code=BILD) 0.12 mg/dL 0.0-0.20 SGOT/AST (test code=AST) 66 IUnit/L 15-37 SGPT/ALT (test code=ALT) 66 IUnit/L 12-78 ALKALINE PHOSPHATASE TOTAL (test code=ALKP) 108 IUnit/L 45-117 Note change in reference range due to change in reagent. [id number] 03:05:00* Test Item Value Reference Range Comments LIPASE (test code=LIP) 79 U/L 73.0-393.0 [id number] 03:05:00* Test Item Value Reference Range Comments TROPONIN-I (test code=TROPI) ng/mL 0-0.045 BASIC METABOLIC [id number] 02:56:00* Test Item Value Reference Range Comments SODIUM (test code=NA) 129 mmol/L 136-145 POTASSIUM (test code=K) 3.4 mmol/L 3.5-5.1 CHLORIDE (test code=CL) 96.0 mmol/L 98-107 CARBON DIOXIDE (test code=CO2) 22.0 mmol/L 21-32 ANION GAP (test code=GAP) 14.4 10-20 GLUCOSE (test code=GLU) 229 mg/dL 74-106 BLOOD UREA NITROGEN (test code=BUN) 12 mg/dL 7-18 GLOMERULAR FILTRATION RATE (test code=GFR) mL/min >=60 CREATININE (test code=CREAT) mg/dL 0.7-1.3 BUN/CREATININE RATIO (test code=BUN/CREA) 10-20 CALCIUM (test code=CA) 7.6 mg/dL 8.5-10.1 HEPATIC FUNCTION [id number] 02:56:00* Test Item Value Reference Range Comments TOTAL PROTEIN (test code=PROT) gram/dL 6.4-8.2 ALBUMIN (test code=ALB) 3.3 g/dL 3.4-5.0 GLOBULIN (test code=GLOB) gram/dL 2.7-4.2 ALBUMIN/GLOBULIN RATIO (test code=A/G) 0.75-1.50 BILIRUBIN TOTAL (test code=BILT) mg/dL 0.0-1.0 BILIRUBIN DIRECT (test code=BILD) 0.12 mg/dL 0.0-0.20 SGOT/AST (test code=AST) IUnit/L 15-37 SGPT/ALT (test code=ALT) 66 IUnit/L 12-78 ALKALINE PHOSPHATASE TOTAL (test code=ALKP) IUnit/L 45-117 [id number] 02:56:00* Test Item Value Reference Range Comments LIPASE (test code=LIP) 79 U/L 73.0-393.0 [id number] 02:56:00* Test Item Value Reference Range Comments TROPONIN-I (test code=TROPI) ng/mL 0-0.045 [id number] 02:48:00* Test Item Value Reference Range Comments AMMONIA (test code=AMM) 32 umol/L 11-32 BASIC METABOLIC [id number] 02:48:00* Test Item Value Reference Range Comments SODIUM (test code=NA) 129 mmol/L 136-145 POTASSIUM (test code=K) 3.4 mmol/L 3.5-5.1 CHLORIDE (test code=CL) 96.0 mmol/L 98-107 CARBON DIOXIDE (test code=CO2) mmol/L 21-32 ANION GAP (test code=GAP) 10-20 GLUCOSE (test code=GLU) mg/dL 74-106 BLOOD UREA NITROGEN (test code=BUN) mg/dL 7-18 GLOMERULAR FILTRATION RATE (test code=GFR) mL/min >=60 CREATININE (test code=CREAT) mg/dL 0.7-1.3 BUN/CREATININE RATIO (test code=BUN/CREA) 10-20 CALCIUM (test code=CA) mg/dL 8.5-10.1 HEPATIC FUNCTION [id number] 02:48:00* Test Item Value Reference Range Comments TOTAL PROTEIN (test code=PROT) gram/dL 6.4-8.2 ALBUMIN (test code=ALB) g/dL 3.4-5.0 GLOBULIN (test code=GLOB) gram/dL 2.7-4.2 ALBUMIN/GLOBULIN RATIO (test code=A/G) 0.75-1.50 BILIRUBIN TOTAL (test code=BILT) mg/dL 0.0-1.0 BILIRUBIN DIRECT (test code=BILD) mg/dL 0.0-0.20 SGOT/AST (test code=AST) IUnit/L 15-37 SGPT/ALT (test code=ALT) IUnit/L 12-78 ALKALINE PHOSPHATASE TOTAL (test code=ALKP) IUnit/L 45-117 [id number] 02:48:00* Test Item Value Reference Range Comments LIPASE (test code=LIP) U/L 73.0-393.0 [id number] 02:48:00* Test Item Value Reference Range Comments TROPONIN-I (test code=TROPI) ng/mL 0-0.045 - XR CHEST 1 [id number] 02:16:00 FAX: Anupam Pena MD [phone] [place]: B St: REG Name: JUNG HUTCHINS [facility] : [birth year] Age/S: 63/M [address] Unit #: [id number] Loc: [place] [address] Phys: hSena Cutler MD Acct: [id number] Dis Date: Status: REG ER PHONE #: [phone] Exam Date: 07/14/2018 0141 FAX #: [phone] Reason: CHEST PAIN EXAMS: CPT CODE: [id number] XR CHEST 1 V 11619 - XR CHEST 1 V, 07/14/2018 1:32 AM Reason For Examination: CHEST PAIN Comparison: June 14, 2017 Location: R16 Findings Exam findings are limited secondary to low lung volumes. The patient's body habitus and superimposed soft tissues over the lung bases also limit branden luation. LUNGS: No definite pulmonary edema or consolidatio n PLEURA: No pleural effusions CARDIOMEDIAS TINAL SIL[place]ETTE Unremarkable IMPRESSION: No plain film evidence of acute cardiopulmonary abnormality within the given limitations above at 0216 Reported and signed by: Barbara cunningham M.D. CC: Anupam Davila echnologist: RT GLENNY Trnscrd Date /Time/By: 07/14/2018 (215) : By: [email or web address] Orig Print D/T: S: 019 (0219) PAGE 1 Signed Report CBC W/O [id number] 02:13:00* Test Item Value Reference Range Comments WHITE BLOOD CELL (test code=WBC) 6.6 K/mm3 4.5-12.5 RED BLOOD CELL (test code=RBC) 3.40 mill/mm3 4.0-5.8 HEMOGLOBIN (test code=HGB) 10.6 gram/dL 13.0-17.5 HEMATOCRIT (test code=HCT) 32.5 % 42.0-52.0 MEAN CELL VOLUME (test code=MCV) 95.6 fL 80-98 MEAN CELL HGB (test code=MCH) 31.2 picogram 27.0-33.0 MEAN CELL HGB CONCETRATION (test code=MCHC) 32.6 gram/dL 33.0-36.0 RED CELL DISTRIBUTION WIDTH (test code=RDW) 13.3 % 11.6-16.2 PLATELET COUNT (test code=PLT) 194 K/mm3 150-450 MEAN PLATELET VOLUME (test code=MPV) 10.0 fL 6.7-11.0
[2018-12-16] MEDS ORDERED: DEXTROSE 5%/0.45% SOD CHL 1,000 ML IV ONE (03:45)
[2018-12-16 04:27] LABS: BASOPHILS # (AUTO) 0.1 (0.0-0.1); BASOPHILS % 0.5 % (0.0-1.0); EOSINOPHILS # (AUTO) 0.1 (0.0-0.4); EOSINOPHILS % 0.7 % (0.0-6.0); HEMATOCRIT 32.7 % (38.2-49.6); HEMOGLOBIN 11.3 g/dL (14.0-18.0); LYMPHOCYTES # (AUTO) 0.8 (1.0-3.2); LYMPHOCYTES % 8.4 % (18.0-39.1); MEAN CORPUSCULAR HEMOGLOBIN 31.1 pg (28-32); MEAN CORPUSCULAR HGB CONC 34.6 g/dL (31-35); MEAN CORPUSCULAR VOLUME 90.1 fL (81-99); MONOCYTES # (AUTO) 0.3 (0.2-0.8); MONOCYTES % 3.3 % (4.4-11.3); NEUTROPHILS # (AUTO) 8.4 (2.1-6.9); NEUTROPHILS % 86.7 % (38.7-80.0); PLATELET COUNT 188 x10e3/uL (140-360); RED BLOOD COUNT 3.63 x10e6/uL (4.3-5.7); RED CELL DISTRIBUTION WIDTH 14.1 % (11.7-14.4)
[2018-12-16 04:47] LABS: ALANINE AMINOTRANSFERASE 34 IU/L (0-55); ALBUMIN 4.1 g/dL (3.5-5.0); ALBUMIN/GLOBULIN RATIO 1.2 (0.8-2.0); ALKALINE PHOSPHATASE 93 IU/L (40-150); ANION GAP 17.9 mmol/L (8-16); BLOOD UREA NITROGEN 10 mg/dL (7-26); BUN/CREATININE RATIO 14 (6-25); CALCIUM 9.3 mg/dL (8.4-10.2); CARBON DIOXIDE 22 mmol/L (22-29); CHLORIDE 94 mmol/L (98-107); CREATININE, SERUM 0.74 mg/dL (0.72-1.25); EST GLOMERULAR FILTRATION RATE > 60 ML/MIN (60-); GLUCOSE 95 mg/dL (74-118); POTASSIUM 3.9 mmol/L (3.5-5.1); SODIUM 130 mmol/L (136-145)
--- NOTE | 2018-12-16 06:10 | Diagnostic Imaging Report ---
EXAMINATION: CHEST SINGLE (PORTABLE) INDICATION: Altered mental status COMPARISON: None FINDINGS: AP view TUBES and LINES: None. LUNGS: Lungs are well inflated. Lungs are clear. There is no evidence of pneumonia or pulmonary edema. PLEURA: No pleural effusion or pneumothorax. HEART AND MEDIASTINUM: The cardiomediastinal silhouette is unremarkable. BONES AND SOFT TISSUES: No acute osseous lesion. Soft tissues are unremarkable. Degenerative changes in the thoracic spine. Chronic appearing right humeral neck fracture deformity. UPPER ABDOMEN: No free air under the diaphragm. IMPRESSION: No acute thoracic abnormality. Signed by: Tyler Persaud DO on 12/16/2018 6:07 AM
--- NOTE | 2018-12-16 06:52 | NUR ---
BS - 153 AT THIS TIME, ORDERS RECEIVED TO STOP D5.
[2018-12-16 07:29] LABS: CREATINE KINASE 142 IU/L (30-200)
[2018-12-16 07:51] LABS: CLARITY,URINE CLEAR (CLEAR); COLOR,URINE YELLOW (YELLOW); LEUKOCYTE ESTERASE ,URINE NEGATIVE (NEGATIVE); NITRITE,URINE NEGATIVE (NEGATIVE); PROTEIN,URINE DIPSTICK TRACE (NEGATIVE)
[2018-12-16 07:52] LABS: BILIRUBIN,URINE NEGATIVE (NEGATIVE); KETONES,URINE NEGATIVE (NEGATIVE); URINE UROBILINOGEN 0.2 mg/dL (0.2 - 1)
[2018-12-16 08:10] VITALS: BP 144/72
== END 2018-12-16 08:18 | disposition home or self-care (01) ==
LOC: ER 03:41
DX: E11.649 Type 2 diabetes mellitus with hypoglycemia without coma (principal); I10 Essential (primary) hypertension; E78.5 Hyperlipidemia, unspecified
CPT/HCPCS: 36415; 71045; 80053; 81001; 82550; 82553; 82948; 84484; 85025; 93005; 99284

== ENCOUNTER 2019-01-13 21:41 | Observation (INO) | payer MEDICARE ==
[~2019-01-13] VITALS: Ht 167.6 cm; Wt 62.8 kg
--- NOTE | 2019-01-13 00:15 | NUR ---
patient is a new admit that arrived via stretcher. patient is awake and talking. patient has been assisted into the bed. bed is in the lowest position and call light is within reach. will continue to monitor patient.
[2019-01-13] MEDS ORDERED: ASPIRIN 81 MG CHEW TAB PO ONE ×2 (22:00→23:30)
--- NOTE | 2019-01-13 22:15 | NUR ---
PT BROUGHT BACK TO ROOM 6 AT THIS TIME, PLACED ON CARROT HARVESTER, NAD NOTED.
[2019-01-13 22:38] LABS: BASOPHILS # (AUTO) 0.1 (0.0-0.1); EOSINOPHILS # (AUTO) 0.2 (0.0-0.4); EOSINOPHILS % 4.1 % (0.0-6.0); HEMATOCRIT 32.8 % (38.2-49.6); HEMOGLOBIN 11.5 g/dL (14.0-18.0); LYMPHOCYTES # (AUTO) 1.7 (1.0-3.2); LYMPHOCYTES % 28.8 % (18.0-39.1); MEAN CORPUSCULAR HGB CONC 35.1 g/dL (31-35); MEAN CORPUSCULAR VOLUME 91.4 fL (81-99); MONOCYTES # (AUTO) 0.4 (0.2-0.8); MONOCYTES % 6.1 % (4.4-11.3); NEUTROPHILS # (AUTO) 3.5 (2.1-6.9); NEUTROPHILS % 59.7 % (38.7-80.0); PLATELET COUNT 246 x10e3/uL (140-360); RED BLOOD COUNT 3.59 x10e6/uL (4.3-5.7)
[2019-01-13 22:42] LABS: INR 0.78; PROTHROMBIN TIME 11.3 seconds (11.9-14.5)
[2019-01-13 22:43] LABS: PARTIAL THROMBOPLASTIN TIME 29.1 seconds (23.8-35.5)
--- NOTE | 2019-01-13 22:46 | Diagnostic Imaging Report ---
Examination: Single AP view of the chest. COMPARISON: 12/16/2018 INDICATION: Shortness of breath DISCUSSION: Lungs remain well-inflated and without focal consolidation, pleural effusion, or pneumothorax. Cario mediastinal contour and pulmonary vasculature are within normal limits. No acute osseous abnormality. Incompletely healed right proximal humeral fracture unchanged. IMPRESSION: 1. No acute cardiopulmonary abnormalities. Signed by: Dr. Jorge Luis Deng M.D. on 01/13/2019 10:42 PM
[2019-01-13 22:52] LABS: ALANINE AMINOTRANSFERASE 34 IU/L (0-55); ALBUMIN/GLOBULIN RATIO 1.2 (0.8-2.0); ALKALINE PHOSPHATASE 82 IU/L (40-150); ANION GAP 13.9 mmol/L (8-16); BLOOD UREA NITROGEN 16 mg/dL (7-26); BUN/CREATININE RATIO 18 (6-25); CALCIUM 9.7 mg/dL (8.4-10.2); CARBON DIOXIDE 27 mmol/L (22-29); CHLORIDE 95 mmol/L (98-107); CREATINE KINASE 82 IU/L (30-200); CREATININE, SERUM 0.87 mg/dL (0.72-1.25); EST GLOMERULAR FILTRATION RATE > 60 ML/MIN (60-); GLUCOSE 163 mg/dL (74-118); POTASSIUM 3.9 mmol/L (3.5-5.1); SODIUM 132 mmol/L (136-145)
--- NOTE | 2019-01-13 22:58 | NUR ---
REPORT GIVEN TO JANINE SWANSON
[2019-01-14 00:15] VITALS: BP 142/66
[2019-01-14 00:30] VITALS: BP 142/66
[2019-01-14] MEDS ORDERED: SIMVASTATIN40 MG PO (01:02)
[2019-01-14] MEDS ORDERED: QUINAPRIL HCL5 MG PO (01:02)
[2019-01-14] MEDS ORDERED: TERAZOSIN HCL5 MG PO (01:02)
[2019-01-14] MEDS ORDERED: FINASTERIDE5 MG PO (01:02)
[2019-01-14] MEDS ORDERED: LEVEMIR100 UNIT/1 (01:02)
[2019-01-14] MEDS ORDERED: QUINAPRIL HCL40 MG (01:02)
[2019-01-14 04:00] VITALS: BP 134/67
[2019-01-14] MEDS ORDERED: HUMULIN R100 UNIT/2 SC (05:24)
--- NOTE | 2019-01-14 05:56 | NUR ---
H&P cc: cp HPI: 63yoM, PCP , devleoped CP left sided and SBP 80s at home. Last stress test 08/2018 pt states was negative. Done by . PMH: DM, HTN, HLD, BPH, cig use PSx: hip Allergies; see emr FH/SH; ; occ etoh; 1/4ppd cigs meds; see MAR ROS; no f/c/s/N/V/D/MALONEY/vision changes/skin rash/itch/foot pain v/s; revd PE tired appearing anicteric ns1s2 mod bs soft nt nd no e/t no chest wall tenderness skin dry n. affect a&ox3; birch labs./meds; revd A/P: 63yoM Atypical chest pain DM HLD HTN BPH Nicotine dependence PLAN Trend enzymes; cardio eval ASA/statin; echo hba1c/lipids Prop: lovenox/pepcid dispo: Giacomo Apodaca MD, PhD.
--- NOTE | 2019-01-14 06:29 | NUR ---
voice message left on district adviser phone notifying him of routine consultation.
--- NOTE | 2019-01-14 06:54 | NUR ---
report given to day nurse. patient is resting comfortably in bed. bed is in lowest position and call samuel is within reach.
--- NOTE | 2019-01-14 07:05 | NUR ---
PT ALERT RESP EVEN AND UNLABORED AND NO DISTRESS NOTED AT THIS TIME, PT ABLE TO MAKE NEEDS KNOWN, CALL LIGHT IN REACH.
[2019-01-14] MEDS ORDERED: FAMOTIDINE 20 MG TAB PO SCH (07:30)
[2019-01-14 07:38] LABS: CHOL/HDL RATIO 1.9 (3.9-4.7)
[2019-01-14 08:11] LABS: CREATINE KINASE MB 1.5 ng/mL (0-5.0)
[2019-01-14 08:17] VITALS: BP 131/65
[2019-01-14 08:39] VITALS: BP 131/65
[2019-01-14] MEDS ORDERED: DEXTROSE 50% SYRINGE 50 ML IV PRN ×2 (09:00→10:00)
[2019-01-14] MEDS ORDERED: FINASTERIDE 5 MG TAB PO SCH (09:00)
[2019-01-14] MEDS ORDERED: NICOTINE 14 MG/EA PATCH TOP SCH (09:00)
[2019-01-14] MEDS ORDERED: TERAZOSIN HCL 5 MG CAP PO SCH (09:00)
[2019-01-14] MEDS ORDERED: INSULIN REGULAR, HUMAN 100 UNIT/1 ML 3ML VIAL SQ SCH ×3 (11:30)
[2019-01-14 12:00] VITALS: BP 149/81
--- NOTE | 2019-01-14 16:14 | NUR ---
PT DISCHARGED HOME AT THIS TIME NO PRESCRIPTIONS, PT WAS ASKED TO FOLLOW UP WITH HIS PCP AND DATA ANALYTICS SPECIALIST IN 1 TO 2 WEEKS, DR. Celsa SAUCEDA. PT IV SITE REMOVED, NO SWELLING NO REDNESS TO SITE.
[2019-01-14] MEDS ORDERED: ENOXAPARIN SOD INJ 40 MG/0.4 ML SYR SC SCH (17:00)
--- NOTE | 2019-01-14 19:24 | Consultation ---
DATE OF CONSULTATION: Cardiology Consultation HISTORY OF PRESENT ILLNESS: This is a 63-year-old man with a history of labile blood pressures, formally on midodrine, recently started on quinapril; diabetes mellitus, coronary artery disease with a known chronic total occlusion of the right coronary artery, which receives collaterals from the LAD and obtuse marginal systems; hyperlipidemia, presented to the emergency department with labile blood pressures and hypotension. He also reports atypical chest discomfort, mild intensity, no radiation, no exacerbating or relieving factors. Here, his blood pressures have been within normal limits. PAST MEDICAL HISTORY: As stated above. PAST SURGICAL HISTORY: Cardiac catheterization. FAMILY HISTORY: Noncontributory. ALLERGIES: SEE MEDICATIONS RECONCILIATION FORM. MEDICATIONS: See medications reconciliation form. REVIEW OF SYSTEMS: A 12-point review of system was conducted, is negative except as stated above in the HPI. SOCIAL HISTORY: Tobacco use. PHYSICAL EXAMINATION: VITAL SIGNS: Temperature is 97.3, heart rate is 86, respirations are 19, blood pressure is 149/81, and ox saturation is 100% on room air. GENERAL: Well appearing, well built, in no apparent distress. Alert and oriented x3. HEAD: Normocephalic, atraumatic. Eyes, extraocular muscles are intact. Conjunctivae clear. NECK: No JVD. No bruits. CARDIOVASCULAR: Regular rate and rhythm. LUNGS: Clear to auscultation. ABDOMEN: Soft, nontender, nondistended. EXTREMITIES: No clubbing, cyanosis, or edema. VASCULAR: 2+ pulses. SKIN: Warm, dry, and intact. NEUROLOGIC: No focal deficits noted. Cranial nerves grossly intact. PSYCHIATRIC: Normal mood and affect. LABORATORY DATA: Reviewed. Preliminary echocardiogram results within normal limits with an ejection fraction of 55%. Total electrocardiogram showed a normal sinus rhythm. Telemetry monitoring revealed normal sinus rhythm. IMPRESSION: 1. Labile blood pressures. 2. Atypical chest pain. 3. Hypertension. 4. Hyperlipidemia. 5. Tobacco use. 6. Coronary artery disease. RECOMMENDATIONS: The patient is ruled out for acute myocardial infarction. His ejection fraction is 55%. He has a known chronic total occlusion, which receives collaterals from the left coronary system. The patient had prior been on midodrine, however, recently started on quinapril again with hypotension. Continue to monitor blood pressures. The patient may be discharged from a cardiovascular standpoint with outpatient followup. DO DONALD Leyva/ESTELLE /[id number]
[2019-01-14] MEDS ORDERED: SIMVASTATIN 40 MG TAB PO SCH (21:00)
--- NOTE | 2019-01-15 06:31 | NUR ---
D/C summary Principal Dx: Atypical chest pain DM HLD HTN BPH Nicotine dependence PLAN Trend enzymes; cardio eval ASA/statin; echo hba1c/lipids Prop: lovenox/pepcid dispo: cleared by cardiology d/c home stable f/u pcp 1 week and cardiology 1 week d/c>35mins Giacomo Apodaca MD, PhD.
== END 2019-01-14 16:25 | disposition home or self-care (01) ==
LOC: ER 21:41 → ERHOLD 01-14 00:02 → MED/SURG3 01-14 00:34
PROVIDERS: ADMIT Internal Medicine; ATTEND Internal Medicine
DX: R07.89 Other chest pain (principal); E11.9 Type 2 diabetes mellitus without complications; E78.5 Hyperlipidemia, unspecified; N40.0 Benign prostatic hyperplasia without lower urinary tract symptoms; F17.210 Nicotine dependence, cigarettes, uncomplicated; Z79.84 Long term (current) use of oral hypoglycemic drugs; I25.10 Atherosclerotic heart disease of native coronary artery without angina pectoris; I25.82 Chronic total occlusion of coronary artery
CPT/HCPCS: 36415 ×2; 71045; 80053; 80061; 82550 ×2; 82553 ×2; 82948; 83036; 83880; 84484 ×2; 85025; 85610; 85730; 93005; 93306; 99284; G0378; J1817

== ENCOUNTER 2024-05-29 12:22 | Emergency (ER) | payer MEDICARE ==
[~2024-05-29] VITALS: Ht 167.6 cm; Wt 59.0 kg
[~2024-05-29 12:22] MED LIST: FINASTERIDE5 MG PO; HUMULIN R100 UNIT/2 SC; LEVEMIR100 UNIT/1; QUINAPRIL HCL40 MG; QUINAPRIL HCL5 MG PO; SIMVASTATIN40 MG PO; TERAZOSIN HCL5 MG PO
[2024-05-29 14:18] LABS: BASOPHILS # (AUTO) 0.1 (0.0-0.1); BASOPHILS % 0.6 % (0.0-1.0); EOSINOPHILS # (AUTO) 0.1 (0.0-0.4); HEMATOCRIT 38.7 % (38.2-49.6); HEMOGLOBIN 12.4 g/dL (14.0-18.0); LYMPHOCYTES # (AUTO) 0.6 (1.0-3.2); MEAN CORPUSCULAR HEMOGLOBIN 29.9 pg (28-32); MEAN CORPUSCULAR VOLUME 93.3 fL (81-99); MONOCYTES # (AUTO) 0.3 (0.2-0.8); MONOCYTES % 3.8 % (4.4-11.3); NEUTROPHILS # (AUTO) 7.3 (2.1-6.9); NEUTROPHILS % 87.2 % (38.7-80.0); PLATELET COUNT 249 x10e3/uL (140-360); RED BLOOD COUNT 4.15 x10e6/uL (4.3-5.7); RED CELL DISTRIBUTION WIDTH 14.5 % (11.7-14.4); WHITE BLOOD COUNT 8.41 x10e3/uL (4.8-10.8)
[2024-05-29 14:40] VITALS: TEMP 97.7
[2024-05-29 15:12] LABS: ALBUMIN 3.5 g/dL (3.5-5.0); ALBUMIN/GLOBULIN RATIO 0.9 (0.8-2.0); ANION GAP 15.2 mmol/L (8-16); BILIRUBIN,TOTAL 0.4 mg/dL (0.2-1.2); CALCIUM 9.3 mg/dL (8.4-10.2); CREATININE, SERUM 0.84 mg/dL (0.72-1.25); POTASSIUM 4.2 mmol/L (3.5-5.1); TOTAL PROTEIN 7.5 g/dL (6.5-8.1)
[2024-05-29 15:47] LABS: BILIRUBIN,URINE NEGATIVE (NEGATIVE); CLARITY,URINE CLEAR (CLEAR); COLOR,URINE YELLOW (YELLOW); GLUCOSE, URINE 500 (NEGATIVE); KETONES,URINE NEGATIVE (NEGATIVE); LEUKOCYTE ESTERASE ,URINE NEGATIVE (NEGATIVE); NITRITE,URINE NEGATIVE (NEGATIVE); PH,URINE 6.5 (5 - 7); PROTEIN,URINE DIPSTICK NEGATIVE (NEGATIVE); URINE UROBILINOGEN 0.2 mg/dL (0.2 - 1)
[2024-05-29 15:52] LABS: BACTERIA,URINE FEW /HPF; EPITHELIAL CELLS,URINE FEW /LPF; RBC,URINE 0-5 /HPF (0-5); WBC,URINE (MAN) 0-5 /HPF (0-5)
[2024-05-29 16:39] VITALS: PULSE 85; RESP 18; O2SAT 97
== END 2024-05-29 16:55 | disposition home or self-care (01) ==
LOC: ER 15:30
DX: E11.649 Type 2 diabetes mellitus with hypoglycemia without coma (principal); T38.3X5A Adverse effect of insulin and oral hypoglycemic [antidiabetic] drugs, initial encounter; I10 Essential (primary) hypertension; E78.5 Hyperlipidemia, unspecified; F17.210 Nicotine dependence, cigarettes, uncomplicated
CPT/HCPCS: 36415; 71045; 80053; 81001; 85025; 99284